=== PATIENT | male | born 1995 | race Caucasian/White ===

== ENCOUNTER 2018-04-14 16:44 | Emergency (ER) | payer BC ==
[~2018-04-14] VITALS: Ht 170.2 cm; Wt 65.8 kg
[2018-04-14 16:56] VITALS: BP_SYST 136
[2018-04-14 18:10] VITALS: BP_SYST 136
== END 2018-04-14 18:10 | disposition home or self-care (01) ==
LOC: SED 16:44
DX: S61.432A Puncture wound without foreign body of left hand, initial encounter (principal); S61.431A Puncture wound without foreign body of right hand, initial encounter; S61.532A Puncture wound without foreign body of left wrist, initial encounter; S61.531A Puncture wound without foreign body of right wrist, initial encounter; R03.0 Elevated blood-pressure reading, without diagnosis of hypertension; Z88.0 Allergy status to penicillin; W54.0XXA Bitten by dog, initial encounter; Y93.89 Activity, other specified; Y92.89 Other specified places as the place of occurrence of the external cause; Y99.8 Other external cause status
CPT/HCPCS: 99283